=== PATIENT | female | born 1980 | race Caucasian/White ===

== ENCOUNTER 2018-05-20 11:39 | Emergency (ER) | payer OTHER ==
[2018-05-20 11:51] VITALS: BP 125/75; PULSE 72; TEMP 98.3; BMI 29.9
--- NOTE | 2018-05-20 12:38 | PDOC ---
History of Present Illness - General Chief Complaint: Urinary Catheter Problem Stated Complaint: Urinary Catheter Problem Time Seen by Provider: 05/20/18 11:59 History Source: Patient Exam Limitations: No Limitations - History of Present Illness Initial Comments: This is a 37 YO (~12 weeks 3 days by crown-rump length on ) with h/o HTN (on Labetalol), , abdominoplasty, breast augmentation , and large fibroid (5.2x5.2x5.5 cm in the lower uterine segment) who p/w urinary retention for which a Hammond was placed on 05/18/18 at [facility] in [place]. She had not urinated for about 10 hours and had been having lower abdominal pain/distention which prompted her visit to that outside hospital. She reports having > one liter urine output into the Hammond bag immediately after it was placed. The Hammond continues to drain well and she has no symptoms. She was instructed to have the Hammond taken out two days from the time of placement, but she has not been able to get in to see a urologist because she is traveling (lives in [place]). She is supposed to leave on a road trip to go back to [place] in two days. She denies headache, vision change, neck pain, back pain, SOB, cough, chest pain, abdominal pain, leg swelling/pain , numbness, tingling, focal weakness, bowel incontinence, any recent urinary incontinence, imbalance, difficulty walking, or other symptoms. Past History - Past Medical History Allergies/Adverse Reactions: Allergies Allergy/AdvReac Type Severity Reaction Status Date / Time No Known Allergies Allergy Verified 05/20/18 11:45 Home Medications: Ambulatory Orders NK [No Known Home Medication] 08/04/14 COPD: No HTN: Yes - Reproductive History (#): 2 Para: 1 - Suicide/Smoking/Psychosocial Hx Smoking History: Never smoked Number of Cigarettes Smoked Daily: 0 Hx Alcohol Use: No Review of Systems - Review of Systems Able to Perform ROS?: Yes Constitutional: No: Chills, Fever, Unexplained wgt Loss HEENTM: No: Nose Congestion, Throat Pain Respiratory: No: Cough, Shortness of Breath Cardiac (ROS): No: Chest Pain, Palpitations ABD/GI: No: Abdominal Distended, Constipated, Diarrhea, Nausea, Vomiting, Abdominal cramping : Yes: Other (urinary retention). No: Burning, Dysuria, Incontinence Musculoskeletal: No: Back Pain, Neck Pain Integumentary: No: Bruising, Rash Neurological: No: Headache, Numbness, Tingling, Weakness, Dizziness Endocrine: No: Unexplained Weight Gain, Unexplained Weight Loss *Physical Exam - Vital Signs Last Vital Signs Temp Pulse Resp BP Pulse Ox 98.3 F 72 19 125/75 100 05/20/18 11:45 05/20/18 11:45 05/20/18 11:45 05/20/18 11:45 05/20/18 11:45 - Physical Exam General Appearance: Yes: Nourished, Appropriately Dressed, Other (very well appearing and comfortable adult female accompanied by her significant other at bedside, answering questions appropriately). No: Apparent Distress HEENT: positive: EOMI, TORI, Normal ENT Inspection, Normal Voice, Hearing Grossly Normal. negative: Scleral Icterus (R), Scleral Icterus (L), Nasal Congestion Neck: positive: Trachea midline, Supple. negative: Tender, Rigid Respiratory/Chest: positive: Lungs Clear, Normal Breath Sounds. negative: Respiratory Distress, Crackles, Rhonchi, Stridor, Wheezing Cardiovascular: positive: Regular Rhythm, Regular Rate, S1, S2. negative: Edema , JVD, Murmur Female Pelvic Exam: positive: other (Hammond indwelling) Gastrointestinal/Abdominal: positive: Normal Bowel Sounds, Soft, Other (a bit gravid lower abdomen). negative: Tender, Organomegaly, Pulsatile Mass, Guarding , Hernia Musculoskeletal: positive: Normal Inspection. negative: Decreased Range of Motion, Vertebral Tenderness Extremity: positive: Normal Capillary Refill, Normal Inspection, Normal Range of Motion. negative: Tender, Cyanosis Integumentary: positive: Normal Color, Dry, Warm. negative: Erythema, Rash, Bruising Neurologic: positive: federal law clerk II-XII NML intact, Fully Oriented, Alert, Normal Mood/ Affect, Normal Response, Motor Strength 5/5, Finger to Nose (normal). negative : EOM Palsy, Facial Droop, Numbness, Sensory Deficit, Confused, Disoriented Medical Decision Making - Medical Decision Making Adult female patient p/w urinary retention in with previously placed Hammond catheter. No current complaints, no issues with Hammond draining, states she was instructed to have the Hammond removed today. Initial Vital Signs Temp Pulse Resp BP Pulse Ox 98.3 F 72 19 125/75 100 05/20/18 11:45 05/20/18 11:45 05/20/18 11:45 05/20/18 11:45 05/20/18 11:45 Exam: Well appearing, nontoxic, no abdominal pain, Hammond draining well, normal heart/lungs/neuro exam. Had large fibroid in lower uterine segment diagnosed two days ago. Also has ~12.5 wks . Most likely these are space occupying and compressing bladder/urethra. W/U ordered: None TX ordered: None The patient needs official voiding trial at time of Hammond removal which needs to be done in urologist office. Dr. Guzman spoke with Dr. Kauffman who can see the patient in clinic tomorrow morning. Referral information given to the patient and she is informed of the appointment time. The Pt is appropriate for discharge with close outpatient follow up. They are comfortable with this plan and will follow up with Urology tomorrow. Specific return precautions are discussed and they will come back to the ER if necessary. *DC/Admit/Observation/Transfer Diagnosis at time of Disposition: Urinary retention, First trimester Uterine fibroid Qualifiers: Uterine leiomyoma location: unspecified location Qualified Code(s): D25.9 - Leiomyoma of uterus, unspecified - Discharge Dispostion Disposition: HOME Condition at time of disposition: Stable Decision to Admit order: No - Referrals Referrals: Bernardo Kauffman MD [Staff Physician] - - Patient Instructions Printed Discharge Instructions: DI for Urinary Retention in Women Additional Instructions: You were seen in the ER for urinary retention which was previously treated with a Hammond catheter which is still in place. We did an exam and we did not find any signs of an emergency. Your Hammond catheter is draining well and the urine looks healthy. After our assessment, we believe you are not having a medical emergency and you are safe to go home. We spoke with a urologist (Dr. Kauffman) who can see you in his office tomorrow at 8:30 AM. We are giving you the information for the clinic. Please come back to the ER at any time, 24 hours a day, for any new or worsening symptoms, like worsening pelvic pain, discharge, high fever, or other symptoms. If you are having severe or life threatening symptoms, or symptoms that make it unsafe to drive or have someone drive you, please call 911. Print Language: ARMENIAN - Post Discharge Activity
--- NOTE | 2018-05-20 12:46 | PDOC ---
Attending Attestation - Resident Resident Name: Tonie Mcgowan - ED Attending Attestation I have performed the following: I have examined & evaluated the patient, The case was reviewed & discussed with the resident, I agree w/resident's findings & plan, Exceptions are as noted - HPI HPI: 05/20/18 12:46 Patient is a 37 y.o. , who is currently 13 weeks , with PMHx of HTN , who presents to ED for mehta catheter removal. Pt was previously seen at another ED 2 days ago for urinary retention and subsequently had mehta placed. At that time, a fibroid (5.2x5.2x5.5 cm, crown rump length 5.6cm) was found in the lower uterine segment and deemed the cause of her retention. She was instructed to go have the mehta removed after 2 days. Pt presents to this ER for removal. She has no complaints at this time. Pt states that she is visiting from [place] and does not have urology or OB follow up here. She has f/u with her OB in [place] this coming . Patient denies any strange colors or smells of her urine, denies prior burning or similar urinary retention. No numbness, tingling, focal weakness, saddle anesthesia, bowel or bladder incontinence, visual changes, vertigo, chest pain, abdominal pain, shortness of breath, fever, headaches, neck or back pain Surgical Hx: , abdominoplasty, breast augmentation. Allergies: denies" - Physicial Exam PE: 05/20/18 12:48 "GENERAL: Awake, alert, and fully oriented, in no acute distress. HEAD: No signs of trauma EYES: PERRLA, EOMI, sclera anicteric, conjunctiva clear ENT: Auricles normal inspection, hearing grossly normal, nares patent, oropharynx clear without exudates. Moist mucosa NECK: Nontender, no stepoffs, Normal ROM, supple, no lymphadenopathy, JVD, or masses LUNGS: Breath sounds equal, clear to auscultation bilaterally. No wheezes, and no crackles HEART: Regular rate and rhythm, normal S1 and S2, no murmurs, rubs or gallops ABDOMEN: Soft, nontender, normoactive bowel sounds. No guarding, no rebound. No masses EXTREMITIES: Normal range of motion, no edema. No clubbing or cyanosis. No cords, erythema, or tenderness NEUROLOGICAL: Cranial nerves II through XII intact. 5/5 strength and sensation in all extremities, Normal speech, normal gait, normal cerebellar function SKIN: Warm, Dry, normal turgor, no rashes or lesions noted. : Mehta in place with leg bag draining clear yellow urine - Medical Decision Making 05/20/18 12:48 37 F presenting for mehta removal. Pt with no acute complaints. - Mehta left in place - I spoke with Dr. Bernardo Kauffman, who can see pt tomorrow morning - DC with urology f/u tomorrow Pt is well appearing, with normal vitals. Clinically stable for DC at this time. I discussed the physical exam findings, ancillary test results and final diagnoses with the patient. I answered all of the patient's questions. The patient was satisfied with the care received and felt comfortable with the discharge plan and treatment plan. The patient agrees to follow up with the primary care physician within 24-72 hours.
== END 2018-05-20 12:45 | disposition home or self-care (01) ==
LOC: JER 11:39
DX: O26.891 Other specified pregnancy related conditions, first trimester (principal); O34.11 Maternal care for benign tumor of corpus uteri, first trimester; D25.9 Leiomyoma of uterus, unspecified; R33.8 Other retention of urine; Z97.8 Presence of other specified devices; Z96.0 Presence of urogenital implants; Z3A.12 12 weeks gestation of pregnancy
CPT/HCPCS: 99282-25